=== PATIENT | female | born 1980 | race Caucasian/White ===

== ENCOUNTER 2017-06-20 09:09 | Emergency (ER) | payer SELFPAY ==
[2017-06-20 09:17] VITALS: BP 110/79
--- NOTE | 2017-06-20 10:23 | ER Document Report ---
HPI - HPI Patient complains to provider of: URI symptoms Pain Level: Denies Context: Patient is a 37-year-old female complaining of 5 days of sinus congestion, pressure, drainage, fever Associated Symptoms: Body/muscle aches, Nonproductive cough, Fever, Headache, Leg swelling, Rhinnorhea, Sinus pain/drainage Exacerbated by: Denies Relieved by: Denies Similar symptoms previously: No Recently seen / treated by doctor: Yes - lugo - ROS Systems Reviewed and Negative: Yes All other systems reviewed and negative - RESPIRATORY Respiratory: REPORTS: Coughing - REPRODUCTIVE Reproductive: REPORTS: : Past Medical History - General Information source: Patient - Social History Smoking Status: Current Every Day Smoker Chew tobacco use (# tins/day): No Frequency of alcohol use: None Drug Abuse: None Lives with: Family Family History: Reviewed & Not Pertinent Patient has suicidal ideation: No Patient has homicidal ideation: No Renal/ Medical History: Denies: Hx Peritoneal Dialysis Psychiatric Medical History: Reports: Hx Depression - in the past Past Surgical History: Reports: Hx Breast Surgery Vertical Provider Document - CONSTITUTIONAL Agree With Documented VS: Yes Exam Limitations: No Limitations General Appearance: WD/WN, No Apparent Distress - INFECTION CONTROL TRAVEL OUTSIDE OF THE [place] IN LAST 30 DAYS: No - HEENT HEENT: Atraumatic, PERRLA Notes: TMs dull, generalized tap tenderness over sinuses - NECK Neck: Normal Inspection, Supple - RESPIRATORY Respiratory: Breath Sounds Normal, No Respiratory Distress - CARDIOVASCULAR Cardiovascular: Regular Rate, Regular Rhythm - GI/ABDOMEN Gastrointestinal: Abdomen Soft - MUSCULOSKELETAL/EXTREMETIES Musculoskeletal/Extremeties: MAEW - NEURO Level of Consciousness: Awake, Alert, Appropriate - DERM Integumentary: Warm, Dry - healing facial carbuncles Course - Re-evaluation Re-evalutation: 06/20/17 10:21 History and physical are consistent with a viral upper respiratory infection with no symptoms of pneumonia, sepsis or dehydration. I recommend symptomatic treatment with [id number] antihistamine/decongestant and cough suppressant. Home care, ED return precautions discussed with patient. Patient agreeable with plan and stable for discharge 06/20/17 10:23 - Vital Signs Vital signs: Temp Pulse Resp BP Pulse Ox 98.3 F 88 14 110/79 94 06/20/17 09:15 06/20/17 09:15 06/20/17 09:15 06/20/17 09:15 06/20/17 09:15 Discharge - Discharge Clinical Impression: URI (upper respiratory infection) Qualifiers: URI type: unspecified viral URI Qualified Code(s): J06.9 - Acute upper respiratory infection, unspecified Condition: Stable Disposition: HOME, SELF-CARE Instructions: Upper Respiratory Illness ([facility]) Additional Instructions: You have a viral upper respiratory illness Continue using Mucinex D You may use an [id number] cough suppressant such as Delsym or Robitussin for symptomatic relief Encourage fluids Follow-up with your primary care if symptoms persist or worsen
== END 2017-06-20 10:33 | disposition home or self-care (01) ==
LOC: ER 09:09
DX: O99.519 Diseases of the respiratory system complicating pregnancy, unspecified trimester (principal); J06.9 Acute upper respiratory infection, unspecified; B97.89 Other viral agents as the cause of diseases classified elsewhere; J34.89 Other specified disorders of nose and nasal sinuses; O26.899 Other specified pregnancy related conditions, unspecified trimester; R09.81 Nasal congestion; R50.9 Fever, unspecified; R05 Cough; R51 Headache; O99.89 Other specified diseases and conditions complicating pregnancy, childbirth and the puerperium; M79.1 Myalgia; M79.89 Other specified soft tissue disorders; O99.330 Smoking (tobacco) complicating pregnancy, unspecified trimester; Z3A.00 Weeks of gestation of pregnancy not specified
CPT/HCPCS: 99283

== ENCOUNTER 2019-10-07 07:56 | Emergency (ER) | payer SELFPAY ==
[2019-10-07 08:02] VITALS: BP 135/99
--- NOTE | 2019-10-07 09:43 | ER Document Report ---
ED General - General Chief Complaint: Skin Problem Stated Complaint: RASH Primary Care Provider: MAYA BARRETT MD [Primary Care Provider] - Follow up as needed Notes: Patient is a 39-year-old white female with a history of staph infections who presents to the emergency department with a chief complaint of suspected staph infection for the past 2 days. States that she had an area sharp to the right anterior thigh. She states it started this 1 area and then spread involving 2 regions to the same upper thigh area. She states they were connected but she used a potato salve and the area seemed to resolve some. She states they have improved but not fully so she came for further evaluation and possible treatment. She is allergic to sulfa medicines. She states she is also had an area forming since yesterday in the left axilla. She states she has had these before and were told there were staph infections. She denies any drainage from the left axilla but admits to some from the right upper wound on the leg. Denies any fever chills or night sweats. TRAVEL OUTSIDE OF THE [place] IN LAST 30 DAYS: No - Related Data Allergies/Adverse Reactions: Sulfa (Sulfonamide Antibiotics) Allergy (Verified 06/20/17 09:11) Past Medical History - Social History Smoking Status: Current Every Day Smoker Chew tobacco use (# tins/day): No Frequency of alcohol use: None Drug Abuse: None Family History: Reviewed & Not Pertinent Patient has homicidal ideation: No Renal/ Medical History: Denies: Hx Peritoneal Dialysis Psychiatric Medical History: Reports: Hx Depression - in the past Past Surgical History: Reports: Hx Breast Surgery Review of Systems - Review of Systems Notes: As per HPI Physical Exam - Vital signs Vitals: Temp Pulse Resp BP Pulse Ox 98.8 F 88 16 135/99 H 100 10/07/19 08:01 10/07/19 08:01 10/07/19 08:01 10/07/19 08:01 10/07/19 08:01 - General General appearance: Appears well, Alert In distress: None - Respiratory Respiratory status: No respiratory distress Chest status: Nontender Breath sounds: Normal Chest palpation: Normal - Cardiovascular Rhythm: Regular Heart sounds: Normal auscultation - Neurological Neuro grossly intact: Yes Cognition: Normal Orientation: AAOx4 - Psychological Associated symptoms: Normal affect, Normal mood - Skin Skin Color: Other - Small area of induration and erythema to the left axilla with no fluctuance appreciated no drainage. No proximal streaking. To the right anterior proximal thigh there is an area of erythema that is open and draining proximally in an area just distal by about 3 cm that is macular and erythematous without evidence of drainage or fluctuance appearing as cellulitis. No proximal streaking appreciated. Course - Re-evaluation Re-evalutation: 10/07/19 09:42 Patient with an extensive history of staph infections. No abscess formations for drainage today. She will be given clindamycin as she is allergic to Bactrim. We discussed warm compress application. She will follow-up with her regular doctor in 2 to 3 days for reevaluation. Advised she return here any ER immediately with any new, persistent or worsening symptoms. She verbalized understood and agreed. - Vital Signs Vital signs: Temp Pulse Resp BP Pulse Ox 98.8 F 88 16 135/99 H 100 10/07/19 08:01 10/07/19 08:01 10/07/19 08:01 10/07/19 08:01 10/07/19 08:01 Discharge - Discharge Clinical Impression: Abscess Cellulitis Qualifiers: Site of cellulitis: other site Qualified Code(s): L03.818 - Cellulitis of other sites Condition: Stable Disposition: HOME, SELF-CARE Instructions: MRSA Cellulitis ([facility]), Abscess ([facility]) Additional Instructions: Follow-up with your regular doctor in 2 to 3 days for reevaluation. Return here or any ER immediately with any new, persistent or worsening symptoms. Prescriptions: Clindamycin HCl [Cleocin 150 mg Capsule] 300 mg PO Q6 #80 capsule Referrals: MAYA BARRETT MD [Primary Care Provider] - Follow up as needed
== END 2019-10-07 09:44 | disposition home or self-care (01) ==
LOC: ER 07:56
DX: L02.412 Cutaneous abscess of left axilla (principal); L03.818 Cellulitis of other sites; R21 Rash and other nonspecific skin eruption; Z88.2 Allergy status to sulfonamides; F17.200 Nicotine dependence, unspecified, uncomplicated
CPT/HCPCS: 99282

== ENCOUNTER 2019-10-20 00:07 | Emergency (ER) | payer SELFPAY ==
[2019-10-20 00:29] VITALS: BP 165/97
--- NOTE | 2019-10-20 00:48 | ER Document Report ---
ED Medical Screen (RME) - General Chief Complaint: Medical Clearance Stated Complaint: MEDICAL CLEARANCE Time Seen by Provider: 10/20/19 00:39 Primary Care Provider: MAYA BARRETT MD [Primary Care Provider] - Follow up as needed Mode of Arrival: Ambulatory Information source: Patient Notes: HPI; 39-year-old female presents emergency room with multiple complaints. States she was seen here 2 weeks ago for staph infection was discharged home but that some of the areas have not fully healed. She would like to have them evaluated to see if she needs any more antibiotics or if she can just use something topical. Also was complaining of vaginal discharge think she has a yeast infection. Thirdly she has a form she is requesting to have filled out that she is medically cleared to continue to donate plasma. PE: Alert and oriented x3. Lungs: Clear to auscultation without rales, rhonchi, wheezes. Heart: Regular rate rhythm without murmurs, rubs, gallops. Unable to fully assess all lesions and do full exam in triage. I have greeted and performed a rapid initial assessment of this patient. A comprehensive ED assessment and evaluation of the patient, analysis of test results and completion of the medical decision making process will be conducted by additional ED providers. I have specifically instructed the patient or family members with the patient to immediately return to any nursing staff should anything change in the patient's condition or with their chief complaint. TRAVEL OUTSIDE OF THE [place] IN LAST 30 DAYS: No - Related Data Allergies/Adverse Reactions: Sulfa (Sulfonamide Antibiotics) Allergy (Verified 06/20/17 09:11) Past Medical History Renal/ Medical History: Denies: Hx Peritoneal Dialysis Psychiatric Medical History: Reports: Hx Depression - in the past Past Surgical History: Reports: Hx Breast Surgery Physical Exam - Vital signs Vitals: Temp Pulse Resp BP Pulse Ox 99.5 F 97 20 165/97 H 100 10/20/19 00:10/20/19 00:10/20/19 00:10/20/19 00:10/20/19 00:26 Course - Vital Signs Vital signs: Temp Pulse Resp BP Pulse Ox 99.5 F 97 20 165/97 H 100 10/20/19 00:10/20/19 00:10/20/19 00:10/20/19 00:10/20/19 00:26 Doctor's Discharge - Discharge Referrals: MAYA BARRETT MD [Primary Care Provider] - Follow up as needed
== END 2019-10-20 01:31 | disposition left against medical advice (07) ==
LOC: ER 00:07
DX: Z53.20 Procedure and treatment not carried out because of patient's decision for unspecified reasons (principal); N89.8 Other specified noninflammatory disorders of vagina; Z86.19 Personal history of other infectious and parasitic diseases
CPT/HCPCS: 99281